=== PATIENT | female | born 1950 | race Caucasian/White ===

== ENCOUNTER 2017-04-08 08:30 | Inpatient (IN) | payer OTHER ==
[~2017-04-08] VITALS: Ht 160 cm; Wt 51.0 kg
[2017-04-08 09:01] LABS: BASOPHIL % 0.2 % (0-2); PLATELET COUNT 229 x10^3mcL (130-400); RED CELL DISTRIBUTION WIDTH 15.1 % (11.5-14.5)
[2017-04-08 09:12] LABS: CALCIUM 9.9 mg/dL (8.5-10.1); CARBON DIOXIDE 24.4 mmol/L (21-32); CHLORIDE SERUM 106 mmol/L (98-107); CREATININE SERUM 0.7 mg/dL (0.6-1.0); GFR1 > 60 mL/min; GLUCOSE SERUM 93 mg/dL (74-106); POTASSIUM SERUM 3.7 mmol/L (3.5-5.1); SODIUM SERUM 142 mmol/L (136-145)
[2017-04-08 09:17] LABS: ALBUMIN 3.6 g/dL (3.4-5.0); ALKALINE PHOSPHATASE 85 U/L (46-116); ALT/SGPT 23 U/L (14-59); AST/SGOT 15 U/L (15-37); BILIRUBIN TOTAL 0.46 mg/dL (0.20-1.00); TOTAL PROTEIN, SERUM 7.5 g/dL (6.4-8.2)
[2017-04-08] MEDS ORDERED: ALENDRONATE SOD70 M2 PO (09:48)
[2017-04-08] MEDS ORDERED: NOR10 PO (09:48)
[2017-04-08 10:46] LABS: MAGNESIUM 2.1 mg/dL (1.8-2.4); PHOSPHOROUS 4.1 mg/dL (2.5-4.9)
[2017-04-08 10:53] LABS: CHOLESTEROL/HDL RATIO 3.4
[2017-04-08 10:57] VITALS: BP 139/71
[2017-04-08 10:57] LABS: T3 TOTAL 1.28 ng/mL
[2017-04-08 11:03] LABS: FREE T4 1.04 ng/dL (0.76-1.46); FREE THYROXINE INDEX 3.4 ug/dL (1.4-4.5); T4(THYROXINE) 9.6 ug/dL (4.7-13.3)
[2017-04-08 12:31] LABS: microscopic required? YES; urine erythrocyte 1+ (NEGATIVE)
[2017-04-08 15:22] LABS: AMPHETAMINE QUAL UR NONE DETECTED (NEG <=1000)
[2017-04-08 17:09] VITALS: BP 143/66
[2017-04-08 21:55] VITALS: BP 126/50
[2017-04-09 08:54] LABS: CALCIUM 8.3 mg/dL (8.5-10.1); CARBON DIOXIDE 24.2 mmol/L (21-32); CHLORIDE SERUM 110 mmol/L (98-107); CREATININE SERUM 0.5 mg/dL (0.6-1.0); GFR1 > 60 mL/min; GLUCOSE SERUM 81 mg/dL (74-106); PHOSPHOROUS 2.4 mg/dL (2.5-4.9); POTASSIUM SERUM 3.4 mmol/L (3.5-5.1); SODIUM SERUM 145 mmol/L (136-145)
[2017-04-09 08:58] LABS: BASOPHIL % 0.4 % (0-2); PLATELET COUNT 208 x10^3mcL (130-400)
[2017-04-09 09:00] VITALS: BP 146/64
[2017-04-09 10:08] LABS: RED CELL DISTRIBUTION WIDTH 14.9 % (11.5-14.5)
[2017-04-09 10:51] VITALS: BP 142/67
[2017-04-09 14:11] VITALS: BP 143/56
[2017-04-09] MEDS ORDERED: LIPI10 PO (17:02)
[2017-04-09] MEDS ORDERED: ECO81 PO (17:04)
[2017-04-09 17:41] VITALS: BP 123/50
[2017-04-09 18:10] VITALS: BP 123/50
== END 2017-04-09 18:37 | disposition home or self-care (01) | DRG 205 ==
LOC: ED 08:30 → DU 09:58
PROVIDERS: Emergency Medicine; ADMIT Family Medicine
DX: M94.0 Chondrocostal junction syndrome [Tietze] (principal); N17.0 Acute kidney failure with tubular necrosis; Z68.1 Body mass index [BMI] 19.9 or less, adult; N39.0 Urinary tract infection, site not specified; I10 Essential (primary) hypertension; E78.2 Mixed hyperlipidemia; Z79.82 Long term (current) use of aspirin; F17.210 Nicotine dependence, cigarettes, uncomplicated; Z87.310 Personal history of (healed) osteoporosis fracture
CPT/HCPCS: 83880; 84439; 90732; 99406; J0696; J1885; J7030

== ENCOUNTER 2017-04-14 22:09 | Emergency (ER) | payer OTHER ==
[~2017-04-14] VITALS: Ht 160 cm; Wt 52.2 kg
[~2017-04-14 22:09] MED LIST: ALENDRONATE SOD70 M2 PO; ECO81 PO; LIPI10 PO; NOR10 PO
[2017-04-14 23:27] LABS: BASOPHIL % 0.4 % (0-2); PLATELET COUNT 222 x10^3mcL (130-400); RED CELL DISTRIBUTION WIDTH 14.3 % (11.5-14.5)
[2017-04-14 23:36] LABS: CALCIUM 9.5 mg/dL (8.5-10.1); CARBON DIOXIDE 29.3 mmol/L (21-32); CHLORIDE SERUM 107 mmol/L (98-107); CREATININE SERUM 0.6 mg/dL (0.6-1.0); GFR1 > 60 mL/min; GLUCOSE SERUM 89 mg/dL (74-106); POTASSIUM SERUM 3.6 mmol/L (3.5-5.1); SODIUM SERUM 140 mmol/L (136-145)
[2017-04-14 23:44] LABS: ALBUMIN 3.4 g/dL (3.4-5.0); ALKALINE PHOSPHATASE 84 U/L (46-116); ALT/SGPT 24 U/L (14-59); AST/SGOT 18 U/L (15-37); BILIRUBIN TOTAL 0.2 mg/dL (0.20-1.00)
[2017-04-15 02:18] VITALS: BP 127/59
== END 2017-04-15 02:18 | disposition home or self-care (01) ==
LOC: ED 22:09
PROVIDERS: Emergency Medicine
DX: S29.011A Strain of muscle and tendon of front wall of thorax, initial encounter (principal); I10 Essential (primary) hypertension; M81.0 Age-related osteoporosis without current pathological fracture; E03.9 Hypothyroidism, unspecified; E78.5 Hyperlipidemia, unspecified; X58.XXXA Exposure to other specified factors, initial encounter; Y93.89 Activity, other specified; Y99.8 Other external cause status; Y92.89 Other specified places as the place of occurrence of the external cause
CPT/HCPCS: 83880; J2270; J2405; J7030; Q9967

== ENCOUNTER 2017-10-26 11:54 | Emergency (ER) | payer OTHER ==
[~2017-10-26] VITALS: Ht 157.5 cm; Wt 50.8 kg
[2017-10-26 12:16] VITALS: Ht 157.5 cm; Wt 50.8 kg
[2017-10-26 16:43] LABS: BASOPHIL % 0.4 % (0-2); PLATELET COUNT 223 x10^3mcL (130-400); RED CELL DISTRIBUTION WIDTH 14.5 % (11.5-14.5)
[2017-10-26 16:50] LABS: CALCIUM 9.2 mg/dL (8.5-10.1); CARBON DIOXIDE 27.2 mmol/L (21-32); CHLORIDE SERUM 105 mmol/L (98-107); CREATININE SERUM 0.6 mg/dL (0.6-1.0); GFR1 > 60 mL/min; GLUCOSE SERUM 91 mg/dL (74-106); POTASSIUM SERUM 3.7 mmol/L (3.5-5.1); SODIUM SERUM 142 mmol/L (136-145)
[2017-10-26 16:55] LABS: ALBUMIN 3.4 g/dL (3.4-5.0); ALKALINE PHOSPHATASE 83 U/L (46-116); ALT/SGPT 21 U/L (14-59); AST/SGOT 14 U/L (15-37); BILIRUBIN TOTAL 0.3 mg/dL (0.20-1.00); URIC ACID 3.2 mg/dL (2.6-6.0)
[2017-10-26 17:59] LABS: UA SPECIFIC GRAVITY 1.025 (1.005-1.035); microscopic required? YES; urine erythrocyte TRACE (NEGATIVE)
[2017-10-26 20:29] VITALS: BP 150/70
== END 2017-10-26 20:29 | disposition home or self-care (01) ==
LOC: ED 11:54
PROVIDERS: Emergency Medicine
DX: M54.5 Low back pain (principal); N39.0 Urinary tract infection, site not specified; K44.9 Diaphragmatic hernia without obstruction or gangrene; K57.92 Diverticulitis of intestine, part unspecified, without perforation or abscess without bleeding; F17.200 Nicotine dependence, unspecified, uncomplicated; E78.00 Pure hypercholesterolemia, unspecified; I10 Essential (primary) hypertension; Z71.6 Tobacco abuse counseling
CPT/HCPCS: 36415; 99406; J3010; Q0162